=== PATIENT | male | born 1960 | race Caucasian/White ===

== ENCOUNTER 2023-08-13 10:37 | Outpatient (OUT) | payer OTHER, SELFPAY ==
[2023-08-14 10:12] LABS: PSA, Free 1.28 ng/mL; Prostate Specific Ag 4.8 ng/mL (0.0-4.0)
== END 2023-08-13 10:38 | disposition home or self-care (01) ==
LOC: LAB 10:41
PROVIDERS: PCP Family Medicine; Visit Provider Urology
DX: R97.20 Elevated prostate specific antigen [PSA] (principal)
CPT/HCPCS: 36415; 84153; 84154

== ENCOUNTER 2024-08-18 08:58 | Outpatient (OUT) | payer BC, SELFPAY ==
--- OUTSIDE RECORDS SUMMARY | 2024-08-18 09:21 | XMS_ITS | CCD ---
Author Organization [facility] Care Team Providers Care [place]ak Worker Name Role Phone FAVIOLA TELLO, DR REANNA Molina Admitting Unavailstephani MCKEON JR, DR REANNA Molina Attending Unavailstephani MCKEON JR, DR REANNA Molina Consulting Unavailstephani MCKEON JR, DR REANNA Molina Admitting Unavailstephani MCKEON JR, DR REANNA Molina Attending Unavailstephani MCKEON JR, DR REANNA Molina Consulting Unavailstephani HENRY WINWILIAM Consulting Unavailable ALLSOGucci, DR BARKER Consulting Unavailable FAVIOLA TELLO, DR REANNA Molina Admitting Unavailstephani MCKEON JR, DR REANNA Molina Attending Unavailstephani MCKEON JR, DR REANNA Molina Consulting UnavailCARLITOS Escoto Consulting Unavailable ALLSOP, DR BARKER Consulting Unavailable ALLSOP, DR BARKER Admitting Unavailable ALLSOP, DR BARKER Attending Unavailable ALLSOP, DR BARKER Consulting Unavailable ARNAUD ROBERTSON Admitting Unavailable ARNAUD ROBERTSON Attending Unavailable ARNAUD ROBERTSON Consulting Unavailable Tammy Marcano Primary Care Physician Tammy Marcano Primary Care Unavailable Maty Bah Attending Unavailable Maty Bah Admitting Unavailable MD Maty Bah Attending Provider MD Tammy Marcano Primary Care Provider Maty Bah. Attending Unavailable Maty Bah Attending Unavailable Tammy Marcano DO Primary Care Provider Unav ailable Tammy Marcano DO Unavailable ALISA Oliver Attending Unavailable TAMMY MARCANO Attending Unavailable MARLENE SHEIKH Attending Unavailable PEACE GLEASON Attending Unavailable Allergies Allergy Classification Reported Allergen(s) Allergy Type Date of Onset Reaction(s) Facility (1 source) Penicillin Drug Allergy [facility] Repository (3 sources) Penicillins; Translations: [penicillins] Drug allergy Unknown (qualifier value) [facility] Comment on above: reaction as child (1 source) Unable to Assess Drug allergy (disorder) 2 [facility] Repository (2 sources) Penicillins; Translations: [penicillins] Propensity to adverse reactions (disorder) 1 Unknown [facility] Repository Medications Current Medications Medication Drug Class(es) Dates Sig (Normalized) Sig (Original) amLODIPine 10 mg oral tablet (4 sources) Dihydropyridine Calcium Channel Agapito Start: 12-01-2023 take 1 tablet by mouth once daily amLODIPine (Norvasc) 10 MG tablet Indications: Primary hypertension (CMS/HCC) Take 1 tablet (10 mg) by mouth Daily 90 tablet 3 12/01/2023 Active Start: 08-02-2020 take 1 tablet by norberto th once daily amLODIPine 2.5 mg Tab 2.5 mg = 1 tab(s), Oral, Daily, # 30 tab(s), Refills(s) 0, Pharmacy: [facility], 182, cm, 07/31/20 10:03:00 EDT, Height/Length Dosing, 91, kg, 07/31/20 10:03:00 EDT, Weight Dosing Start Date: 08/02/20 Status: Ordered dorzolamide 20 mg/ml / timolol 5 mg/ml ophthalmic solution (1 source) Carbonic Anhydrase Inhibitor, beta-Adrenergic Agapito take 1 drop(s) into the eye(s) in the morning dorzolamide-timolol (Cosopt) 2-0.5 % ophthalmic solution Administer 1 drop into both eyes in the morning and 1 drop before bedtime. Active Emergen-C (3 sources) Start: take 1 tablet by mouth once daily Emergen-C one tab, Oral, Daily, Refill(s) 0 Start Date: 09/11/20 Status: Ordered latanoprost (4 sources) Prostaglandin Analog Start: take 1 drop(s) into the eye(s) once daily in the evening latanoprost ophthalmic 1 drop(s), Eye-Both, qPM, Refill(s) 0 Start Date: 07/31/20 Status: Ordered take 1 drop(s) into the eye(s) at bedtime latanoprost (Xalatan) 0.005 % ophthalmic solution Administer 1 drop into both eyes at bedtime. Active Problems Active Problems Problem Classification Problem Date Documented Date Episodic/Chronic Acute and unspecified renal failure (3 sources) Acute renal failure syndrome 08-23-2020 Episodic Biliary tract disease (3 sources) Adenomyomatosis of gallbladder 11-10-2020 Episodic Calculus of urinary tract (11 sources) Calculus of ureter; Translations: [Calculus in bladder] Onset: 10-31-2021 Episodic Chronic kidney disease (1 source) Dependence on renal dialysis; Translations: [DEPENDENCE ON RENAL DIALYSIS] Onset: 10-31-2021 Chronic Chronic obstructive pulmonary disease and bronchiectasis (4 sources) Chronic obstructive pulmonary disease, unspecified; Translations: [Chronic obstructive lung disease] Onset: 11-07-2021 08-16-2020 Chronic Essential hypertension (4 sources) Essential (primary) hypertension; Translations: [Hypertensive disorder] Onset: 11-07-2021 08-07-2020 Chronic Genitourinary symptoms and ill-defined conditions (10 sources) Gross hematuria; Translations: [Bladder dysfunction] Onset: 05-15-2022 09-01-2020 Episodic Glaucoma (3 sources) Glaucoma 08-16-2020 Chronic Hyperplasia of prostate (12 sources) Benign prostatic hyperplasia with lower urinary tract symptoms; Translations: [Benign prostatic hypertrophy with outflow obstruction] Onset: 11-07-2021 Chronic Inflammatory conditions of male genital organs (4 sources) Acute prostatitis; Translations: [Prostatitis] Onset: 05-15-2022 01-02-2021 Episodic Neoplasms of unspecified nature or uncertain behavior (1 source) Neoplastic disease; Translations: [Neoplasm of unspecified behavior of bone, soft tissue, and skin] 08-03-2024 Episodic Other and unspecified benign neoplasm (1 source) Melanocytic nevus of trunk; Translations: [Melanocytic nevi of trunk] 08-03-2024 Episodic Other diseases of kidney and ureters (3 sources) Cyst of kidney 10-04-2020 Episodic Other ear and sense organ disorders (3 sources) Hearing loss 08-07-2020 Chronic Other non-epithelial cancer of skin (1 source) History of malignant basal cell neoplasm of skin; Translations: [Personal history of other malignant neoplasm of skin] 08-03-2024 Episodic Other nutritional; endocrine; and metabolic disorders (3 sources) Body mass index 25-29 - overweight 11-14-2020 Episodic Other screening for suspected conditions (not mental disorders or infectious disease) (9 sources) Elevated prostate specific antigen [PSA]; Translations: [Raised prostate specific antigen] Onset: 11-07-2021 Episodic Other skin disorders (1 source) Seborrheic keratosis; Translations: [Other seborrheic keratosis] 08-03-2024 Episodic Other skin disorders (1 source) Actinic keratosis; Translations: [Actinic keratosis] 08-03-2024 Episodic Other skin disorders (1 source) Lentiginosis; Translations: [Other melanin hyperpigmentation] 08-03-2024 Episodic Substance-related disorders (3 sources) Smoker 10-04-2020 Chronic Comment on above: Added secondary to d ocumentation in Social History. Unclassified (3 sources) CONTACT W/AND (SUSP) EXPOS COVID-19; Translations: [CONTACT W/AND (SUSP) EXPOS COVID-19] Onset: 10-31-2021 Unclassified (1 source) Benign prostatic hyperplasia with lower urinary tract symptoms; Translations: [Benign prostatic hyperplasia with lower urinary tract symptoms] Onset: 08-22-2022 Past or Other Problems Problem Classification Problem Date Documented Date Episodic/Chronic Deficiency and other anemia (1 source) Anemia, unspecified; Translations: [ANEMIA UNSPECIFIED] Onset: 10-31-2021 Episodic Other aftercare (1 source) Other terminal operations supervisor (current) drug therapy; Translations: [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] Onset: 10-31-2021 Episodic Screening and history of mental health and substance abuse codes (1 source) Personal history of nicotine dependence; Translations: [PERSONAL HISTORY OF NICOTINE DEPEND] Onset: 11-07-2021 Episodic Unclassified (1 source) CONTACT W/AND (SUSP) EXPOS COVID-19; Translations: [CONTACT W/AND (SUSP) EXPOS COVID-19] Onset: 10-27-2021 Unclassified (3 sources) Catheterization of bladder by indwelling suprapubic catheter 09-01-2020 Results Test Name Value Interpretation Reference Range Facility Cryotherapy, skin lesionon 1 [facility] Lesion biopsyon 08-03-2024 Type of biopsy: tangential Informed consent: discussed and consent obtained Informed consent comment: The risks and benefits of the biopsy were discussed. Risks include but are not limited to bleeding, infection, scarring, pain, and nerve damage. An opportunity to ask questions prior to the procedure was permitted and all questions were answered. Patient was prepped and draped in usual sterile fashion: area cleansed with alcohol. Anesthesia: the lesion was anesthetized in a standard fashion Anesthetic: 1% lidocaine w/ epinephrine 1-100,000 buffered w/ 8.4% NaHCO3 Instrument used: DermaBlade Hemostasis achieved with: electrodesiccation Outcome: patient tolerated procedure well Outcome comment: The specimen was placed in a prelabeled formalin container to be sent for pathology Post-procedure details: sterile dressing applied and wound care instructions given Post-procedure details comment: Emphasized need to contact clinic for any signs of infection, uncontrollable bleeding, or complications. Dressing type: bandage Additional details: Photo taken Amount of lidocaine used: 0.4 cc [facility] Reminderson 07-21-2024 Reminders Reminders From: Palak Watkins To: MARY Bah; Sent: 09/03/2023 13:40:12 EST Show up: 07/04/2024 14:40:00 EDT Subject: PSA F&T Due Date/Time: 09/03/2024 13:40:00 EST Pt is to get PSA F&T done prior to appt. Reminders are not required for PSA. Normal [facility] Lab Reportson 09-04-2023 Lab Reports [id number] 0TIFF Normal [facility] Screenson 09-04-2023 Screens [id number]#[id number] 0TIFF Normal [facility] Screens [id number] 0TIFF Normal [facility] Ambulatory Visit Summaryon 1 11-03-2022 Ambulatory Visit Summary SHENG TEAGUE :1960 Visit Date:09/03/2023 Ambulatory Visit Instructions Your Diagnosis Elevated PSA BPH without urinary obstruction Tests Performed Urnls Dip Stick Auto w/o Microscopy POC 61007 Your Care Team Attending Physician - Maty Bah MD Primary Care Physician - Tammy Marcano DO This Is Your Medications List Contact prescribing physician if questions or concerns amlodipine (amLODIPine 2.5 mg Tab) dorzolamide-timolol ophthalmic (dorzolamide-timolol Opth 2%-0.5% Venita) latanoprost ophthalmic multivitamin with minerals (Emergen-C) Procedures Performed Cystoscopy (10/31/2021), TURP - Transurethral resection of prostate (10/18/2020), Cystoscopy (09/11/2020), Cystoscopy (08/07/2020), Histology tonsillectomy. Discharge Vitals Blood Pressure 124/82 Height 177 cm Height 70 in Weight 109 kg Weight 239.8 lb BMI 34.79 What to do next Scheduled Follow-Up Appointments Friday 10:45 AM EST With: Maty Bah MD Where: [facility] Patient Educationon 09-03-20 Patient Education Urology Benign Prostatic Hyperplasia Benign prostatic hyperplasia (BPH) is an enlarged prostate gland that is caused by the normal aging process. The prostate may get bigger as a man gets older. The condition is not caused by cancer. The prostate is a walnut-sized gland that is involved in the production of semen. It is located in front of the rectum and below the bladder. The bladder stores urine. The urethra carries stored urine out of the body. An enlarged prostate can press on the urethra. This can make it harder to pass urine. The buildup of urine in the bladder can cause infection. Back pressure and infection may progress to bladder damage and kidney (renal) failure. What are the causes? This condition is part of the normal aging process. However, not all men develop problems from this condition. If the prostate enlarges away from the urethra, urine flow will not be blocked. If it enlarges toward the urethra and compresses it, there will be problems passing urine. What increases the risk? This condition is more likely to develop in men older than 50 years. What are the signs or symptoms? Symptoms of this condition include: ? Getting up often during the night to urinate. ? Needing to urinate frequently during the day. ? Difficulty starting urine flow. ? Decrease in size and strength of your urine stream. ? Leaking (dribbling) after urinating. ? Inability to pass urine. This needs immediate treatment. ? Inability to completely empty your bladder. ? Pain when you pass urine. This is more common if there is also an infection. ? Urinary tract infection (UTI). How is this diagnosed? This condition is diagnosed based on your medical history, a physical exam, and your symptoms. Tests will also be done, such as: ? A post-void bladder scan. This measures any amount of urine that may remain in your bladder after you finish urinating. ? A digital rectal exam. In a rectal exam, your health care provider checks your prostate by putting a lubricated, gloved finger into your rectum to feel the back of your prostate gland. This exam detects the size of your gland and any abnormal lumps or growths. ? An exam of your urine (urinalysis). ? A prostate specific antigen (PSA) screening. This is a blood test used to screen for prostate cancer. ? An ultrasound. This test uses sound waves to electronically produce a picture of your prostate gland. Your health care provider may refer you to a specialist in kidney and prostate diseases (urologist). How is this treated? Once symptoms begin, your health care provider will monitor your condition (active surveillance or watchful waiting). Treatment for this condition will depend on the severity of your condition. Treatment may include: ? Observation and yearly exams. This may be the only treatment needed if your condition and symptoms are mild. ? Medicines to relieve your symptoms, including: ? Medicines to shrink the prostate. ? Medicines to relax the muscle of the prostate. ? Surgery in severe cases. Surgery may include: ? Prostatectomy. In this procedure, the prostate tissue is removed completely through an open incision or with a laparoscope or robotics. ? Transurethral resection of the prostate (TURP). In this procedure, a tool is inserted through the opening at the tip of the penis (urethra). It is used to cut away tissue of the inner core of the prostate. The pieces are removed through the same opening of the penis. This removes the blockage. ? Transurethral incision (TUIP). In this procedure, small cuts are made in the prostate. This lessens the prostate's pressure on the urethra. ? Transurethral microwave thermotherapy (TUMT). This procedure uses microwaves to create heat. The heat destroys and removes a small amount of prostate tissue. ? Transurethral needle ablation (TUNA). This procedure uses radio frequencies to destroy and remove a small amount of prostate tissue. ? Interstitial laser coagulation (ILC). This procedure uses a laser to destroy and remove a small amount of prostate tissue. ? Transurethral electrovaporization (TUVP). This procedure uses electrodes to destroy and remove a small amount of prostate tissue. ? Prostatic urethral lift. This procedure inserts an implant to push the lobes of the prostate away from the urethra. Follow these instructions at home: ? Take biyu-ilx-utuvfzh and prescription medicines only as told by your health care provider. ? Monitor your symptoms for any changes. Contact your health care provider with any changes. ? Avoid drinking large amounts of liquid before going to bed or out in public. ? Avoid or reduce how much caffeine or alcohol you drink. ? Give yourself time when you urinate. ? Keep all follow-up visits. This is important. Contact a health care provider if: ? You have unexplained back pain. ? Your symptoms do not get better with treatment. ? You develop side effects from the medicine (more content not included)... Normal [facility] Urology Office/Clinic Noteon 09-03-2023 Urology Office/Clinic Note Chief Complaint 1 year F/U with PSA Free & Totsl HPI Staff 63 yo male here for 1 yr f/u with PSA. Previous Dx: elevated PSA, BPH wo obstruction. S/p TRUS/bx 09/11/20 and TURP 10/18/[address] Bautista. Prostate MRI 08/22/22. IPSS 5 SHIM23 PSA 08/16/20 - 15.9 05/13/22 - 8.02 08/20/23 - 4.8 & 26.7% Dysuria: denies Incomplete bladder emptying: denies Hematuria: denies visible blood Frequency: every 2-3 hours Urgency: denies Nocturia: once nightly Stream: denies hesitation, sometimes weak stream Leaking: denies Post void dripping: a little bit Wearing pads/ Depends: denies Urge incontinence: denies Stress incontinence: denies Incontinence without Sensory Awareness: denies Abdominal pain: denies Flank pain: denies3 Sexual complaints: denies History of Present Illness Tests reviewed: reviewed UA and PSA F&T. I have reviewed the previous health record information and history for this patient from . I have reviewed and verified the staff HPI to be accurate for this encounter. There have been no associated fever, chills, flank pain, or blood in the urine. Denies any urinary infections since last encounter. Review of Systems PHQ Score Initial Depression Screen Score: 0 SCORE ROS - Provider Constitutional: denies weight loss, denies hot flashes. Eyes: denies eye problems. Gastrointestinal: denies nausea, denies vomiting. Cardiovascular: denies chest pain or angina. Integumentary: no dryness Musculoskeletal: denies musculoskeletal symptoms. ENMT: denies otolaryngeal symptoms. Respiratory: no shortness of breath. Heme/Lymph: denies easy bleeding tendency, denies easy bruising tendency. Psychiatric: no confusion, no anxiety. Genitourinary: See HPI. Physical Exam Vitals & Measurements BP: 124/82 HT: 70 in HT: 177 cm WT: 109 kg WT: 239.8 lb BMI: 34.79 General Appearance: alert, no distress, well nourished, well developed male. Assessment/Plan 63 yo male pt of Dr Bautista and Dr Mckeon here for follow up for history of elevated PSA 1. Elevated PSA (R97.20: Elevated prostate specific antigen [PSA]) PSA 08/16/20 - 15.9 05/13/22 - 8.02 08/20/23 - 4.8 & 26.7% 09/2020 - TRUS BX negative 06/05/22 [facility] - 59% prostate cancer upon biopsy, and 31% Wally score 7 or higher 08/22/2022 MRI prostate - negative, prostate vol 71mL. PSAD 0.113 He is aware of the limitations with MRI. PCPT risk calculator - 14% high grade cancer, 13% low grade, 73% no cancer. SWOG calculator taking into account bx, MRI and other history - 5% risk of cancer Discussed PSA levels with pt, decreased from previous, percent free is high, which is favorable. Pt states that he has not changed anything with his diet or meds. Counseled pt on what could cause the PSA to elevate and what to not do prior to getting his blood drawn. Will continue to monitor. Follow up in 1 yr w/PSA F&T. All questions/concerns were discussed. Pt to call the office if he encounters any issues prior. Pt acknowledges understanding. -Will order PSA F&T. 2. BPH without urinary obstruction (N40.0: Benign prostatic hyperplasia without lower urinary tract symptoms) TURP 10/18/[address] Bautista. Complicated by persistent hematuria, SPT, transfer to [facility] for further mgmt s/p clot evac, fulguration S/P Cysto/bladder stone removal on 11/20/21 by DLS 2 cm, mild trabeculation, severe bilobar hypertrophy No longer on Flomax therapy. IPSS 5(4) Pr denies any urinary sxs. -Pt would like to cont monitoring for urinary LUTS. If occurs, would recommend restarting Flomax therapy +/- finasteride and workup for outlet procedure. I spent 20 minutes today with the patient: reviewing tests in preparation to see and discuss them with the patient, documenting clinical information in the electronic health records, and care coordination. Time was spent performing a medical exam and evaluation, counseling and educating the patient/family, and ordering tests in caring for the patient. Follow-up With When Contact Information Olvin HARPER, MARIA ELENA Camacho, URO In 1 year Additional Instructions: w/PSA F&T Patient Education Benign Prostatic Hyperplasia Palak Espino, personally scribed for Dr. Bah on 09/03/2023 11:43:31. . Documentation recorded by the scribePalak, accurately reflects the services(s) I performed and decisions made by me. Authenticated by Dr. Bah on 09/03/2023 18:50:30. Problem List/Past Medical History Ongoing Abnormal abdominal CT scan Acute renal failure Adenomyomatosis of gallbladder Bilateral renal cysts BMI 29.0-29.9,adult BPH with elevated PSA BPH without urinary obstruction Chronic obstructive pulmonary disease Elevated PSA Glaucoma Gross hematuria High blood pressure [place] (hard of hearing) Kidney stones Prostatitis Smoker Urinary retention Historical Bladder dysfunction BPH - benign prostatic hyperp (more content not included)... Normal [facility] Comment on above: Result Comment: Elec tronically Signed By: Olvin HARPER, Maty Can\.br\Date and Time Signed: 09/03/23 18:50 EST\.br\Electronically Co-Signed By: Palak Watkins\.br\Date and Time Co-Signed: 09/03/23 11:43 EST MR prostate wo/w conon 08-25 MR prostate wo/w con [facility] [place] [address] MRI Report Signed Patient: Sheng Teague MR#: [id number] : 1960 Acct:[id number] Age/Sex: 62 / M ADM Date: 08/22/22 Loc: Room: Type: [facility] Attending Dr: Maty Bah MD Copies to: Maty Bah MD Ordering Provider: Maty Bah MD Date of Service: 08/22/22 MR/MR prostate wo/w con: N40.1,R97.20 EXAMINATION: MR prostate wo/w con HISTORY: Elevated PSA. History of TURP. COMPARISON: NONE TECHNIQUE: Multiparametric imaging of the prostate gland was performed with IV contrast. FINDINGS: Prostate Dimensions: 5.9 x 5.0 x 4.6 cm Prostate Volume: 71 mL Peripheral Zone: Heterogenous inT2 signal suggestive of prior prostatitis. No suspicious T2 or ADC map abnormality is identified to suggest prostate malignancy. Central/Transitional Zone: BPH/TURP changes. Seminal Vesicles: Unremarkable Neurovascular bundles: Unremarkable. Lymphadenopathy: No evidence of lymphadenopathy. Bladder: No focal lesion. Bowel: The visualized bowel is without acute abnormality. Peritoneal Cavity: No free fluid. Bones: No suspicious bony lesion. MR/MR prostate wo/w con IMPRESSION: No MRI evidence of prostate malignancy. Impression dictated by: Ed Brand Jr., D.OValeri08/25/2022 8:49 PM Dictation Location: [place] [address] Transcribed By: [facility] 08/25/222048 Dictated By: Ed Brand Jr, DO 08/25/222043 Signed By: 08/25/222048 [facility] Creatinine (Bld) [Mass/Vol]O rdered By: Maty Bah on 08-22-2022 Creatinine [Mass/Vol] 1.1 mg/dL 0.6-1.3 [facility] Comment on above: ER/ESD physician is notified/shown all ISTAT results.Critical values may be confirmed by laboratory testing ifdeemed necessary by ER attending doctor. ISTAT XRay CREon 08-22-2022 Creatinine [Mass/Vol] 1.1 mg/dL Normal 0.6-1.3 [facility] Comment on above: Result Comment: ER/E SD physician is notified/shown all ISTAT results. Critical values may be confirmed by laboratory testing if deemed necessary by ER attending doctor. Performed By: #### I SCRE #### [facility] [address] [place] [address] Point of Care testing , ISTAT GFR ( > 60 Normal [facility] Comment on above: Result Comment: GFR estimated reference range: According to KDOQI guidelines, <60 ml/min/1.73m2 is sufficient to diagnose a patient with chronic kidney disease. PERFORMED BY: [place] [address] PATHOLOGIST EXECUTIVE VICE PRESIDENT BUSINESS DEVELOPMENT BARRY RAMOS M.D. Performed By: #### I SCRE #### [address] Point of Care testing , ISTAT GFR (Non- Am > 60 Normal [facility] Comment on above: Performed By: #### I SCRE #### [facility] [address] [place] [address] Point of Care testing , No Panel InformationOrdered By: Maty Bah on 08-22-2022 POC Estimated GFR > 60 [facility] Comment on above: GFR estimated refere nce range: According to KDOQI guidelines, <60 ml/min/1.73m2 is sufficient to diagnose a patient with chronic kidney disease. POC Estimated GFR Non- Amer > 60 [facility] CALCULI, URINARYon 2 2,[address] [facility] Comment on above: Performed By: #### C ALCULI #### [facility] [address] [address] [address] Jenni Bartlett Ammonium Acid Urate Normal [facility] Comment on above: Performed By: #### C ALCULI #### [facility] [address] [address] [address] Jenni Bartlett Bilirubin Ql (U) Normal [facility] Comment on above: Performed By: #### C ALCULI #### [facility] [address] [address] [address] Jenni Bartlett Ca Oxalate Dihydrate [facility] Comment on above: Performed By: #### C ALCULI #### [facility] [address] [address] [address] Jenni Bartlett CaHPO4 (Brushite) [facility] Comment on above: Performed By: #### C ALCULI #### [facility] [address] [address] [address] Jenni Bartlett Calcium Bilirubinate [facility] Comment on above: Performed By: #### C ALCULI #### [facility] [address] [address] [address] Jenni Bartlett Calcium Carbonate [facility] Comment on above: Performed By: #### C ALCULI #### [facility] [address] [address] [address] Jenni Bartlett Calcium Oxalate Monohydrate 10 % [facility] Comment on above: Performed By: #### C ALCULI #### [facility] [address] [address] [address] Jenni Bartlett Calcium Palmitate [facility] Comment on above: Performed By: #### C ALCULI #### [facility] [address] [address] [address] Jenni Bartlett Calcium Phosphate [facility] Comment on above: Performed By: #### C ALCULI #### [facility] [address] [address] [address] Jenni Bartlett Calcium Stearate [facility] Comment on above: Performed By: #### C ALCULI #### [facility] [address] [address] [address] Jenni Bartlett Carbonate Apatite Normal [facility] Comment on above: Performed By: #### C ALCULI #### [facility] [address] [address] [address] Jenni Bartlett Cellular Material [facility] Comment on above: Performed By: #### C ALCULI #### [facility] [address] [address] [address] Jenni Bartlett Cholesterol [facility] Comment on above: Performed By: #### C ALCULI #### [facility] [address] [address] [address] Jenni Bartlett Color (U) Nath [facility] Comment on above: Performed By: #### C ALCULI #### [facility] [address] [place] [address] Dr. Jenni Bartlett Comment [facility] Comment on above: Performed By: #### C ALCULI #### [facility] [address] [address] [address] Jenni Bartlett Comment: Comment [facility] Comment on above: Result Comment: Elizabeth clayton questions regarding Calculi Analysis contact [facility] at: [phone]. Performed By: #### C ALCULI #### [facility] [address] [place] [address] Dr. Jenni Bartlett Composition Comment [facility] Comment on above: Result Comment: Perc entage (Represents the % composition) Performed By: #### C ALCULI #### [facility] [address] [place] [address] Dr. Jenni Bartlett Cystine [facility] Comment on above: Performed By: #### C ALCULI #### [facility] [address] [place] [address] Dr. Jenni Bartlett Disclaimer: Comment [facility] Comment on above: Result Comment: This test was developed and its performance characteristics determined by [facility]. It has not been cleared or approved by the Food and Drug Administration. Performed By: #### C ALCULI #### [facility] [address] [address] [address] Jenni Bartlett Dried Blood [facility] Comment on above: Performed By: #### C ALCULI #### [facility] [address] [address] [address] Jenni Bartlett Drug or Metabolite Normal [facility] Comment on above: Performed By: #### C ALCULI #### [facility] [address] [address] [address] Jenni Bartlett Hydroxyapatite Normal [facility] Comment on above: Performed By: #### C ALCULI #### [facility] [address] [address] [address] Jenni Bartlett Mg NH4 PO4 (Struvite) [facility] Comment on above: Performed By: #### C ALCULI #### [facility] [address] [place] [address] Dr. Jenni Bartlett MgHPO4 (Newberyite) Normal [facility] Comment on above: Performed By: #### C ALCULI #### [facility] [address] [address] [address] Jenni Bartlett Other component(s) Normal [facility] Comment on above: Performed By: #### C ALCULI #### [facility] [address] [place] [address] Dr. Jenni Bartlett PDF . Normal [facility] Comment on above: Performed By: #### C ALCULI #### [facility] [address] [address] [address] Jenni Bartlett Photo Comment Normal [facility] Comment on above: Result Comment: Phot ograph will follow under a separate cover Performed By: #### C ALCULI #### [facility] [address] [place] [address] Dr. Jenni Bartlett Please note: Comment [facility] Comment on above: Result Comment: Calc gentry report will follow via computer, mail or employment case manager delivery. Performed By: #### C ALCULI #### [facility] [address] [place] [address] Dr. Jenni Bartlett Size 4x4 [facility] Comment on above: Result Comment: Mult iple pieces received. Dimensions of the largest piece reported. Performed By: #### C ALCULI #### [facility] [address] [place] [address] Dr. Jenni Bartlett Sodium Acid Urate Normal [facility] Comment on above: Performed By: #### C ALCULI #### [facility] [address] [address] [address] Jenni Bartlett Source Comment [facility] Comment on above: Result Comment: Urin kalpesh Bladder Performed By: #### C ALCULI #### [facility] [address] [place] [address] Dr. Jenni Bartlett Triamterene [facility] Comment on above: Performed By: #### C ALCULI #### [facility] [address] [place] [address] Dr. Jenni Bartlett Uric Acid 90 % [facility] Comment on above: Performed By: #### C ALCULI #### [facility] [address] [place] [address] Dr. Jenni Bartlett Uric Acid Dihydrate Normal [facility] Comment on above: Performed By: #### C ALCULI #### [facility] [address] [address] [address] Jenni Bartlett Weight [address] [facility] Comment on above: Performed By: #### C ALCULI #### [facility] [address] [place] [address] Dr. Jenni Bartlett Xanthine [facility] Comment on above: Performed By: #### C ALCULI #### [facility] [address] [place] [address] Dr. Jenni Bartlett CBC AUTO DIFFon 10-29-2021 BASO # 0.1 103/ul Normal 0.0-0.1 [facility] Comment on above: Performed By: #### C BC #### [facility] [address] [place] [address] Dr. Jenni Bartlett Basophils/100 WBC (Bld) 0.6 % Normal 0.2-2.0 [facility] Comment on above: Performed By: #### C BC #### [facility] [address] [place] [address] Dr. Jenni Bartlett EO # 0.2 103/ul Normal 0.0-0.7 [facility] Comment on above: Performed By: #### C BC #### [facility] [address] [place] [address] Dr. Jenni Bartlett Eosinophils/100 WBC (Bld) 2.0 % Normal 0.9-7.0 [facility] Comment on above: Performed By: #### C BC #### [facility] [address] [place] [address] Dr. Jenni Bartlett Erythrocyte distribution width (RBC) [Ratio] 12.7 % Normal 11.0-15.0 [facility] Comment on above: Performed By: #### C BC #### [facility] [address] [place] [address] Dr. Jenni Bartlett Hematocrit (Bld) [Volume fraction] 49.3 % Normal 42.0-54.0 [facility] Comment on above: Performed By: #### C BC #### [facility] [address] [place] [address] Dr. Jenni Bartlett Hemoglobin (Bld) [Mass/Vol] 16.8 g/dL Normal 14.0-18.0 [facility] Comment on above: Performed By: #### C BC #### [facility] [address] [place] [address] Dr. Jenni Bartlett IG # 0.03 10e3/ul Normal 0.00-0.03 [facility] Comment on above: Performed By: #### C BC #### [facility] [address] [place] [address] Dr. Jenni Bartlett IG % 0.4 % Normal 0.0-0.5 [facility] Comment on above: Performed By: #### C BC #### [facility] [address] [place] [address] Dr. Jenni Bartlett LYMPH # 1.9 103/ul Normal 1.2-3.8 [facility] Comment on above: Performed By: #### C BC #### [facility] [address] [place] [address] Dr. Jenni Bartlett Lymphocytes/100 WBC (Bld) 22.2 % Normal 20.5-60.0 [facility] Comment on above: Performed By: #### C BC #### [facility] [address] [place] [address] Dr. Jenni Bartlett MANUAL DIFF REQ NO Normal [facility] Comment on above: Performed By: #### C BC #### [facility] [address] [place] [address] Dr. Jenni Bartlett MCH (RBC) [Entitic mass] 33.1 pg Normal 25.9-34.0 [facility] Comment on above: Performed By: #### C BC #### [facility] [address] [place] [address] Dr. Jenni Bartlett MCHC (RBC) [Mass/Vol] 34.1 g/dL Normal 29.9-35.2 [facility] Comment on above: Performed By: #### C BC #### [facility] [address] [place] [address] Dr. Jenni Bartlett MCV (RBC) [Entitic vol] 97.2 fL Critically high 80.0-94.0 [facility] Comment on above: Performed By: #### C BC #### [facility] [address] [place] [address] Dr. Jenni Bartlett MONO # 0.7 103/ul Normal 0.3-0.8 [facility] Comment on above: Performed By: #### C BC #### [facility] [address] [place] [address] Dr. Jenni Bartlett Monocytes/100 WBC (Bld) 8.8 % Normal 1.7-12.0 [facility] Comment on above: Performed By: #### C BC #### [facility] [address] [place] [address] Dr. Jenni Bartlett NEUT # 5.5 103/ul Normal 1.4-6.5 [facility] Comment on above: Performed By: #### C BC #### [facility] [address] [place] [address] Dr. Jenni Bartlett Neutrophils/100 WBC (Bld) 66.0 % Normal 43.0-75.0 [facility] Comment on above: Performed By: #### C BC #### [facility] [address] [place] [address] Dr. Jenni Bartlett Platelet mean volume (Bld) [Entitic vol] 10.6 fL Normal 9.5-13.5 [facility] Comment on above: Performed By: #### C BC #### [facility] [address] [place] [address] Dr. Jenni Bartlett PLT 218 103/ul Normal 150-450 [facility] Comment on above: Performed By: #### C BC #### [facility] [address] [place] [address] Dr. Jenni Bartlett RBC 5.07 106/ul Normal 4.70-6.10 [facility] Comment on above: Performed By: #### C BC #### [facility] [address] [place] [address] Dr. Jenni Bartlett WBC 8.3 103/ul Normal 4.0-11.0 [facility] Comment on above: Performed By: #### C BC #### [facility] [address] [place] [address] Dr. Jenni Bartlett PROF CHEM 8 (BAS METB)on Anion gap [Moles/Vol] 12.9 mmol/L Normal [facility] Comment on above: Performed By: #### B MP #### [facility] [address] [place] [address] Dr. Jenni Bartlett Calcium [Mass/Vol] 9.6 mg/dL Normal 8.4-10.2 [facility] Comment on above: Performed By: #### B MP #### [facility] [address] [place] [address] Dr. Jenni Bartlett Chloride [Moles/Vol] 104 mmol/L Normal 98-107 [facility] Comment on above: Performed By: #### B MP #### [facility] [address] [address] [address] Jenni Bartlett CO2 [Moles/Vol] 27.2 mmol/L Normal 22.0-30.0 [facility] Comment on above: Performed By: #### B MP #### [facility] [address] [address] [address] Jenni Bartlett Creatinine [Mass/Vol] 0.94 mg/dL Normal 0.66-1.25 [facility] Comment on above: Performed By: #### B MP #### [facility] [address] [address] [address] Jenni Bartlett EGFR-AF ALGERIAN >60 Normal >=60 [facility] Comment on above: Performed By: #### B MP #### [facility] [address] [place] [address] Dr. Jenni Bartlett EGFR-NON AF ALGERIAN >60 Normal >=60 [facility] Comment on above: Performed By: #### B MP #### [facility] [address] [address] [address] Jenni Bartlett Glucose [Mass/Vol] 92 mg/dL Normal 74-106 [facility] Comment on above: Performed By: #### B MP #### [facility] [address] [address] [address] Jenni Bartlett Potassium [Moles/Vol] 4.1 mmol/L Normal 3.4-5.0 [facility] Comment on above: Performed By: #### B MP #### [facility] [address] [address] [address] Jenni Bartlett Sodium [Moles/Vol] 140 mmol/L Normal 137-145 [facility] Comment on above: Performed By: #### B MP #### [facility] [address] [address] [address] Jenni Bartlett Urea nitrogen [Mass/Vol] 23.0 mg/dL Critically high 9.0-20.0 [facility] Comment on above: Performed By: #### B MP #### [facility] [address] [address] [address] Jenni Bartlett Urea nitrogen/Creatinine [Mass ratio] 24.5 mg/mg Normal [facility] Comment on above: Performed By: #### B MP #### [facility] [address] [place] [address] Dr. Jenni Bartlett PROTIMEon 10-29-2021 INR Coag (PPP) [Relative time] 0.98 {INR} Normal [facility] Comment on above: Performed By: #### P T, PTT #### [facility] [address] [place] [address] Dr. Jenni Bartlett INR GUIDELINES SEE BELOW Normal [facility] Comment on above: Result Comment: DAIANA RED INR: 2.0 - 3.0 CONDITIONS NOT LISTED BELOW 2.5 - 3.5 FOR PROSTHETIC HEART VALVE REPLACEMENT 2.5 - 3.5 RECURRENT THROMBOSIS Performed By: #### P T, PTT #### [facility] [address] [place] [address] Dr. Jenni Bartlett PT Coag (PPP) [Time] 10.6 s Normal 9.0-11.6 [facility] Comment on above: Performed By: #### P T, PTT #### [facility] [address] [place] [address] Dr. Jenni Bartlett PTTon 10-29-2021 aPTT Coag (Bld) [Time] 28.5 s Normal 22.3-36.[address] [facility] Comment on above: Performed By: #### P T, PTT #### [facility] [address] [place] [address] Dr. Jenni Bartlett Covid-19 PCR (CVDTB)on 10-07 SARS-CoV-2 (COVID-19) RNA ODILIA+probe Ql (Unsp spec) Not detected Normal NOT DETECTED [facility] Comment on above: Result Comment: This test is not yet approved or cleared by the [place] FDA. When there are no FDA-approved or cleared tests available, and other criteria are met, FDA can make tests available under an emergency access mechanism called an Emergency Use Authorization (EUA). The EUA for this test is supported by the [place] of Health and Human Service's (HHS's) declaration that circumstances exist to justify the emergency use of in vitro diagnostics for the detection and/or diagnosis of the virus that causes COVID-19. This EUA will remain in effect (meaning this test can be used) for the duration of the COVID-19 declaration justifying emergency of IVDs, unless it is terminated or revoked by FDA (after which the test may no longer be used). When diagnostic testing is negative, the possibility of a false negative should be considered in the context of a patient's recent exposures and the presence of clinical signs and symptoms consistent with SARS-CoV-2. Performed By: #### C VDTB #### [facility] [address] [place] [address] Dr. Jenni Bartlett Covid-19 PCR ([facility])on 10-06 SARS-CoV-2 (COVID-19) RNA ODILIA+probe Ql (Unsp spec) Not detected Normal NOT DETECTED [facility] Comment on above: Result Comment: This test is not yet approved or cleared by the [place] FDA. When there are no FDA-approved or cleared tests available, and other criteria are met, FDA can make tests available under an emergency access mechanism called an Emergency Use Authorization (EUA). The EUA for this test is supported by the [place] of Health and Human Service's (HHS's) declaration that circumstances exist to justify the emergency use of in vitro diagnostics for the detection and/or diagnosis of the virus that causes COVID-19. This EUA will remain in effect (meaning this test can be used) for the duration of the COVID-19 declaration justifying emergency of IVDs, unless it is terminated or revoked by FDA (after which the test may no longer be used). When diagnostic testing is negative, the possibility of a false negative should be considered in the context of a patient's recent exposures and the presence of clinical signs and symptoms consistent with SARS-CoV-2. Performed By: #### C VDTB #### [facility] [address] [place] [address] [id number] [address] Jenni Bartlett SURGICAL PATH REPORTon 10-20 SURGICAL PATH REPORT [facility] Department of Pathology [address] [place] [id number] Name: SHENG TEAGUE : 1960 Financial [id number] Number: Gender: Male Location: [facility] Admit 60 years Attending MICAH BAUTISTA Age: Provider: Ordering MICAH BAUTISTA Provider: Consulting: Surgical Pathology Report ACCESSION: COLLECTED DATE/TIME: RECEIVED DATE/TIME: PATHOLOGIST: [id number] 10/18/2020 16:30 EST 10/19/2020 12:14 EST REBECA FLETCHER MD Final Diagnosis Report for THE [place], [place] PROSTATE TISSUE, TURP: - BENIGN PROSTATIC TISSUE WITH STROMAL AND GLANDULAR HYPERPLASIA. - ACUTE AND CHRONIC PROSTATITIS. - NEGATIVE FOR MALIGNANCY. REBECA FLETCHER PATHOLOGIST (Electronic Signature) Date Verified 10/20/2020 CL Clinical Data PRE-OP DIAGNOSIS: Not specified POST-OP DIAGNOSIS: Enlarged prostate PROCEDURES: Cysto, UD, cystogram, TURP SPECIMEN: Prostate tissue / Ambulatory Surgery Gross Description Labeled prostate tissue. Received in formalin are multiple hemicylindrical segments of nath pink firm but pliable tissue. The segments have an aggregate weight of 20 grams and measure in aggregate 8.4 x 7.0 x 2.1 cm. Chef Kitchen Manager sections are submitted in 15 cassettes. MP/hector 10/19/2000 Tissue pathology report for: [facility], [address] [place] [address]; Print Date/ 10/20/2020 13:09 EST Number: Time: [facility] Department of Pathology [address] [place] [address] Name: SHENG TEAGUE : 1960 Financial [id number] Number: Gender: Male Location: [facility] Admit 60 years Attending MICAH BAUTISTA Age: Provider: Ordering MICAH BAUTISTA Provider: Consulting: Surgical Pathology Report ACCESSION: COLLECTED DATE/TIME: RECEIVED DATE/TIME: PATHOLOGIST: [id number] 10/18/2020 16:30 EST 10/19/2020 12:14 EST CHANCE HARPER, REBECA PAGAN Gross Description PATHOLOGY SERVICES [facility], [facility] (CLIA #[id number]) in cooperation with [facility] at [address] [place] [address] (CLIA #[id number]) Codes CPT CODE: 85440 Print Date/ 10/20/2020 13:09 EST Number: Time: Normal [facility] Comment on above: Performed By: #### [id number] #### [facility] [address] [place] [address] Horticulture Superintendent: Wilton Holcomb MD Vital Signs Date Time Vital Sign Value Performing Clinician Sana hillman 07-17-2022 10:10-0400 Blood Pressure Location Maty Bah [facility] 07-17-2022 10:10-0400 Diastolic blood pressure 70 mm[Hg] Maty Bah [facility] 07-17-2022 10:10-0400 Heart rate 64 /min Maty Bah [facility] 07-17-2022 10:10-0400 Systolic blood pressure 126 mm[Hg] Maty Bah [facility] Encounters Encounter Date Encounter Type Care Provider Facility Start: 09-15-2024 ambulatory Maty Bah Facility:[facility] Start: 08-03-2024 End: 08-03-2024 Office outpatient visit 15 minutes Peace Gleason MD Work Phone: [facility] Comment on above: Melanocytic nevus of trunk (Primary Dx); Seborrheic keratosis; Actinic keratosis; History of basal cell carcinoma; Lentigines; Neoplasm of unspecified behavior of bone, soft tissue, and skin Start: 08-03-2024 End: 08-03-2024 ambulatory PEACE GLEASON Not Available Start: 05-14-2024 End: 05-14-2024 ambulatory MARLENE SHEIKH Not Available Start: 12-01-2023 End: 12-01-2023 ambulatory TAMMY MARCANO Not Available Start: 10-16-2023 End: 10-16-2023 ambulatory ALISA ALFONSO Not Available Start: 09-30-2023 End: 09-30-2023 ambulatory ALISA ALFONSO Not Available Start: 09-03-2023 End: 09-03-2023 ambulatory Maty Bah Facility:[facility] Start: 08-28-2022 End: 08-28-2022 Patient encounter procedure Mtay Bah [facility] Start: 08-22-2022 End: 08-22-2022 ambulatory Tammy Marcano Facility:[facility] Start: 08-22-2022 End: 08-22-2022 ambulatory MD Tammy Marcano Work Phone: [facility] Work Phone: Start: 08-22-2022 End: 08-22-2022 Patient encounter procedure MD Tammy Marcano Work Phone: [facility] Start: 08-06-2022 End: 08-06-2022 Patient encounter procedure Maty Bah [facility] Start: 07-17-2022 End: 07-17-2022 Patient encounter procedure Maty Bah [facility] Start: 05-13-2022 End: 05-14-[address] REANNA MCKEON JR Facility:[facility] Start: 10-31-2021 Encounter for preprocedural cardiovascular examination DR REANNA MCKEON JR [facility] Start: 10-31-2021 Encounter for preprocedural laboratory examination DR REANNA MCKEON JR [facility] Start: 10-31-2021 End: 10-31-[address] REANNA MCKEON JR Facility:[facility] Start: 10-29-2021 End: 10-30-[address] REANNA MCKEON JR Facility:[facility] Start: 10-29-2021 End: 10-30-2021 Encounter for preprocedural cardiovascular examination DR REANNA MCKEON JR Facility:[facility] Start: 10-27-2021 End: 10-28-2021 ambulatory ARNAUD ROBERTSON Facility:[facility] Start: 10-16-2021 End: 10-16-[address] TAMMY MARCANO Facility:[facility] Procedures Date Procedure Procedure Detail Performing Clinician Start: 08-03-2024 CRYOTHERAPY SKIN LESION Peace Gleason MD Work Phone: Start: 08-03-2024 SKIN / NAIL BIOPSY Pritesh Gleason MD Work Phone: Start: 05-13-[address] REANNA MCKEON JR Comment on above: Performed By: #### P SAD #### [facility] [address] [place] [address] Dr. Jenni Bartlett Start: 10-31-2021 Cystoscopy Maty Bah Start: 10-18-2020 Transurethral prostatectomy Maty Bah Start: 09-11-2020 Cystoscopy Maty Bah Start: 08-07-2020 Cystoscopy Maty Bah Histology tonsillectomy Miriam Bah Comment on above: as child Plan of Treatment Date Care Activity Detail Author Start: 08-11-2025 End: 08-11-2025 Patient encounter procedure 08/11/2025 11:35 AM EST Office Visit [facility] [address] [place] [id number] Peace Gleason MD [address] [place] [address] [facility] Start: 12-01-2024 Pneumococcal Vaccine: 65+ Years (1 of 2 - PCV) Pneumococcal Vaccine: 65+ Years (1 of 2 - PCV) [facility] Comment on above: Postponed from 1964 (Patient Refus ed) Start: 12-01-2024 Screening for malignant neoplasm of colon Colorectal Cancer Screening [facility] Comment on above: Postponed from 1958 (Patient Refus ed) Start: 06-06-2024 Influenza vaccination Influenza Vaccine (#1) [facility] Start: 08-22-2022 MR Prostate WO and W contrast IV [facility] Start: 08-22-2022 MR prostate wo/w con MR prostate wo/w con [facility] Start: 1960 Screening for malignant neoplasm of colon [facility] Dermatopathology exam Dermatopat hology exam Pathology and Cytology Timed Neoplasm of unspecified behavior of bone, soft tissue, and skin Release Upon Ordering for 1 Occurrences starting 08/03/2024 [facility] Work Phone: Comment on above: Release Upon Ordering for 1 Occurrences starting 08/03/2024 Immunizations Immunization Date Immunization Notes Care Provider Fa vicki NEGATED: Highlighted row has not occurred!08-28-2022 SARS-CoV-2 mRNA (tozinameran 5y-11y) vaccine Maty Olvin [facility] NEGATED: Highlighted row has not occurred!11-07-2020 influenza virus vaccine, unspecified formulation Maty Bah [facility] Payers Date Payer Category Payer [facility] BCBS [id number] 2024 Unknown [id number] 2023 Medicare [id number] 2022 Self-pay 1959 Unknown [id number] 1958 Unknown [id number] [id number]. 593 1958 Unknown [id number] 2.16.840.1.836836.3.579.2. 593 1958 Unknown [id number] 2.16840.1.108138.3.579.2. 593 1958 Unknown [id number] 2.16.840.1.367035.3.579.2. 593 1958 Unknown [id number] 2.16.840.1.982769.3.579.2. 593 1958 Unknown [id number] 2.16.840.1.131041.3.579.2. 727 1958 Unknown [id number] 2.16.840.1.336043.3.579.2. 727 1958 Unknown [id number] 2.16.840.1.573512.3.579.2. 1259 1958 Unknown [id number] 2.16.840.1.439023.3.579.2. 1259 1958 Unknown [id number] 2.16.840.1.347820.3.579.2. 1259 1958 Unknown [id number] 2.16.840.1.994378.3.579.2. 1259 1958 Unknown [id number] 2.16.840.1.211016.3.579.2. 1258 Unknown [id number] [id number]. 531 Social History Date Type Detail Facility Start: 05-21-2022 Tobacco smoking status Ex-smoker (fi nding) [facility] Start: 12-01-2023 Sex Assigned At Male [facility] Start: 1960 Sex Assigned At Male F [facility] Start: 07-31-2023 Tobacco smoking stat us NEIS Never smoked tobacco [facility] Start: 07-31-2023 Tobacco use and exposure Smokeless tobacco non-user [facility] Start: 08-03-2024 Alcoholic beverage intake Current drinker of alcohol (finding) [facility] Start: 12-01-2023 End: 08-03-2024 Alcoholic beverage intake [facility] Start: 1960 Sex assigned at Not on file [facility] Functional Status Date Assessment Result Facility 08-28-2022 Functional Status N/A [facility] 07-17-2022 Functional Status N/A [facility] Clinical Notes 10-29-2021 to 08-03-2024 Peace Gleason MD - 08/03/2024 11:15 AM EDT Note Date & Type Note Facility 08-03-2024 History of Present illness Narrative Skin Check Location: Patient requests a full body skin examination Dermatologic history: history of Actinic Keratosis, history of Basal Cell Carcinoma Last visit: 1 year ago Established patient All pertinent medical history, medications, and allergies were reviewed. General Exam: alert, oriented to person, place, and time, normal affect, well appearing Unaccompanied Scalp, Examined , exam limited by hair Right leg Examined Head, Face Examined , Exam limited by lee and mustache Left leg Examined Neck Examined Right foot Examined Chest Examined Left foot Examined Back Examined Buttocks Examined Abdomen Examined Digits,nails: Examined Right arm Examined Left arm Examined Lymphatics: Not examined Hands Examined 1. Melanocytic nevus of trunk Scattered benign appearing, regular brown to light brown melanocytic papules and macules with similar morphology Counseled regarding these benign growths. Rarely, a nevus can develop into malignant melanoma, so any changing nevi should be promptly re-evaluated. 2. Seborrheic keratosis Stuck on verrucous, nath-brown papules and plaques. Patient was counseled regarding these benign growths. Removal is normally not necessary, but they may be removed if they are symptomatic or for cosmetic reasons. 3. Actinic keratosis (2) Left Forearm - Posterior (2) Erythematous scaly papules Patient was counseled regarding these sun-induced growths that can develop into squamous cell carcinoma if left untreated. Discussed treatment with cryotherapy. It was emphasized that any treated lesions that fail to resolve should be re-evaluated. Cryotherapy performed today; see procedure note Diagnosis: Actinic keratosis Indication: Precancerous Location: see skin exam Consent: Verbal consent was obtained and risks were discussed, including, but not limited to risks of scarring, darker or independent living specialist pigmentary changes, recurrence, incomplete removal and infection. Method: Liquid nitrogen was used to treat the lesion(s) with two 5-10 second freeze-thaw cycles. Number of lesions treated: 2 Post-procedure instructions: Instructions were given orally and in writing. The office will be contacted if the lesion fails to resolve despite treatment, or if a side effect develops such as abnormal crusting, scabbing, redness or tenderness Cryotherapy, skin lesion - Left Forearm - Posterior (2) 4. History of basal cell carcinoma Mid Back No evidence of recurrence at BCC scar. The patient was counseled that scars from excisional sites of nonmelanoma skin cancers should be monitored closely for recurrence. The patient was instructed to contact the office for any new, changing, or symptomatic moles. The patient was also instructed to contact the office for any new lesions that develop within or around the previous surgery scar. 5. Lentigines Scattered nath macules in sun-exposed areas. The patient was informed that lentigines are benign pigmented lesions that occur on sun-exposed and sun-damaged skin. No treatment is necessary. Recommended regular use of broad spectrum sunscreen SPF 30 or higher 6. Neoplasm of unspecified behavior of bone, soft tissue, and skin Right Forearm - Posterior Hyperkeratotic papule Lesion biopsy Type of biopsy: tangential Informed consent: discussed and consent obtained Informed consent comment: The risks and benefits of the biopsy were discussed. Risks include but are not limited to bleeding, infection, scarring, pain, and nerve damage. An opportunity to ask questions prior to the procedure was permitted and all questions were answered. Patient was prepped and draped in usual sterile fashion: area cleansed with alcohol. Anesthesia: the lesion was anesthetized in a standard fashion Anesthetic: 1% lidocaine w/ epinephrine 1-100,000 buffered w/ 8.4% NaHCO3 Instrument used: DermaBlade Hemostasis achieved with: electrodesiccation Outcome: patient tolerated procedure well Outcome comment: The specimen was placed in a prelabeled formalin container to be sent for pathology Post-procedure details: sterile dressing applied and wound care instructions given Post-procedure details comment: Emphasized need to contact clinic for any signs of infection, uncontrollable bleeding, or complications. Dressing type: bandage Additional details: Photo taken Amount of lidocaine used: 0.4 cc Specimen A - Dermatopathology exam Differential Diagnosis: verruca vs SCC Check Margins: No Size of lesion: 0.5 x 0.5 cm Next Visit: 1 year, skin check documented in this encounter [facility] 08-28-2022 Hospital Discharge instructions Patient Education 08/28/2022 12:53:44 Benign Prostatic Hyperplasia Benign Prostatic Hyperplasia Benign prostatic hyperplasia (BPH) is an enlarged prostate gland that is caused by the normal aging process and not by cancer. The prostate is a walnut-sized gland that is involved in the production of semen. It is located in front of the rectum and below the bladder. The bladder stores urine and the urethra is the tube that carries the urine out of the body. The prostate may get bigger as a man gets older. An enlarged prostate can press on the urethra. This can make it harder to pass urine. The build-up of urine in the bladder can cause infection. Back pressure and infection may progress to bladder damage and kidney (renal) failure. What are the causes? This condition is part of a normal aging process. However, not all men develop problems from this condition. If the prostate enlarges away from the urethra, urine flow will not be blocked. If it enlarges toward the urethra and compresses it, there will be problems passing urine. What increases the risk? This condition is more likely to develop in men over the age of 50 years. What are the signs or symptoms? Symptoms of this condition include: Getting up often during the night to urinate. Needing to urinate frequently during the day. Difficulty starting urine flow. Decrease in size and strength of your urine stream. Leaking (dribbling) after urinating. Inability to pass urine. This needs immediate treatment. Inability to completely empty your bladder. Pain when you pass urine. This is more common if there is also an infection. Urinary tract infection (UTI). How is this diagnosed? This condition is diagnosed based on your medical history, a physical exam, and your symptoms. Tests will also be done, such as: A post-void bladder scan. This measures any amount of urine that may remain in your bladder after you finish urinating. A digital rectal exam. In a rectal exam, your health care provider checks your prostate by putting a lubricated, gloved finger into your rectum to feel the back of your prostate gland. This exam detects the size of your gland and any abnormal lumps or growths. An exam of your urine (urinalysis). A prostate specific antigen (PSA) screening. This is a blood test used to screen for prostate cancer. An ultrasound. This test uses sound waves to electronically produce a picture of your prostate gland. Your health care provider may refer you to a specialist in kidney and prostate diseases (urologist). How is this treated? Once symptoms begin, your health care provider will monitor your condition (active surveillance or watchful waiting). Treatment for this condition will depend on the severity of your condition. Treatment may include: Observation and yearly exams. This may be the only treatment needed if your condition and symptoms are mild. Medicines to relieve your symptoms, including: ?Medicines to shrink the prostate. ?Medicines to relax the muscle of the prostate. Surgery in severe cases. Surgery may include: ?Prostatectomy. In this procedure, the prostate tissue is removed completely through an open incision or with a laparoscope or robotics. ?Transurethral resection of the prostate (TURP). In this procedure, a tool is inserted through the opening at the tip of the penis (urethra). It is used to cut away tissue of the inner core of the prostate. The pieces are removed through the same opening of the penis. This removes the blockage. ?Transurethral incision (TUIP). In this procedure, small cuts are made in the prostate. This lessens the prostate's pressure on the urethra. ?Transurethral microwave thermotherapy (TUMT). This procedure uses microwaves to create heat. The heat destroys and removes a small amount of prostate tissue. ?Transurethral needle ablation (TUNA). This procedure uses radio frequencies to destroy and remove a small amount of prostate tissue. ?Interstitial laser coagulation (ILC). This procedure uses a laser to destroy and remove a small amount of prostate tissue. ?Transurethral electrovaporization (TUVP). This procedure uses electrodes to destroy and remove a small amount of prostate tissue. ?Prostatic urethral lift. This procedure inserts an implant to push the lobes of the prostate away from the urethra. Follow these instructions at home: Take puti-bcj-afjpvdl and prescription medicines only as told by your health care provider. Monitor your symptoms for any changes. Contact your health care provider with any changes. Avoid drinking large amounts of liquid before going to bed or out in public. Avoid or reduce how much caffeine or alcohol you drink. Give yourself time when you urinate. Keep all follow-up visits as told by your health care provider. This is important. Contact a health care provider if: You have unexplained back pain. Your symptoms do not get better with treatment. You develop side effects from the medicine you are taking. Your urine becomes very dark or has a bad smell. Your lower abdomen becomes distended and you have trouble passing your urine. Get help right away if: You have a fever or chills. You suddenly cannot urinate. You feel lightheaded, or very dizzy, or you faint. There are large amounts of blood or clots in the urine. Your urinary problems become hard to manage. You develop moderate to severe low back or flank pain. The flank is the side of your body between the ribs and the hip. These symptoms may represent a serious problem that is an emergency. Do not wait to see if the symptoms will go away. Get medical help right away. Call your local emergency services (911 in the [place] Do not drive yourself to the hospital. Summary Benign prostatic hyperplasia (BPH) is an enlarged prostate that is caused by the normal aging process and not by cancer. An enlarged prostate can press on the urethra. This can make it hard to pass urine. This condition is part of a normal aging process and is more likely to develop in men over the age of 50 years. Get help right away if you suddenly cannot urinate. This information is not intended to replace advice given to you by your health care provider. Make sure you discuss any questions you have with your health care provider. Document Released: 09/22/2006 Document Revised: 08/17/2019 Document Reviewed: 10/27/2017 [employer] Patient Education 2019 [place] Follow Up Care 07/17/2022 11:10:26 With:Olvin HARPER, MARIA ELENA Camacho, URO Address: When:1 year Comments:PSA F/T [facility] 07-17-2022 Hospital Discharge instructions Patient Education 07/17/2022 10:57:12 Benign Prostatic Hyperplasia Benign Prostatic Hyperplasia Benign prostatic hyperplasia (BPH) is an enlarged prostate gland that is caused by the normal aging process and not by cancer. The prostate is a walnut-sized gland that is involved in the production of semen. It is located in front of the rectum and below the bladder. The bladder stores urine and the urethra is the tube that carries the urine out of the body. The prostate may get bigger as a man gets older. An enlarged prostate can press on the urethra. This can make it harder to pass urine. The build-up of urine in the bladder can cause infection. Back pressure and infection may progress to bladder damage and kidney (renal) failure. What are the causes? This condition is part of a normal aging process. However, not all men develop problems from this condition. If the prostate enlarges away from the urethra, urine flow will not be blocked. If it enlarges toward the urethra and compresses it, there will be problems passing urine. What increases the risk? This condition is more likely to develop in men over the age of 50 years. What are the signs or symptoms? Symptoms of this condition include: Getting up often during the night to urinate. Needing to urinate frequently during the day. Difficulty starting urine flow. Decrease in size and strength of your urine stream. Leaking (dribbling) after urinating. Inability to pass urine. This needs immediate treatment. Inability to completely empty your bladder. Pain when you pass urine. This is more common if there is also an infection. Urinary tract infection (UTI). How is this diagnosed? This condition is diagnosed based on your medical history, a physical exam, and your symptoms. Tests will also be done, such as: A post-void bladder scan. This measures any amount of urine that may remain in your bladder after you finish urinating. A digital rectal exam. In a rectal exam, your health care provider checks your prostate by putting a lubricated, gloved finger into your rectum to feel the back of your prostate gland. This exam detects the size of your gland and any abnormal lumps or growths. An exam of your urine (urinalysis). A prostate specific antigen (PSA) screening. This is a blood test used to screen for prostate cancer. An ultrasound. This test uses sound waves to electronically produce a picture of your prostate gland. Your health care provider may refer you to a specialist in kidney and prostate diseases (urologist). How is this treated? Once symptoms begin, your health care provider will monitor your condition (active surveillance or watchful waiting). Treatment for this condition will depend on the severity of your condition. Treatment may include: Observation and yearly exams. This may be the only treatment needed if your condition and symptoms are mild. Medicines to relieve your symptoms, including: ?Medicines to shrink the prostate. ?Medicines to relax the muscle of the prostate. Surgery in severe cases. Surgery may include: ?Prostatectomy. In this procedure, the prostate tissue is removed completely through an open incision or with a laparoscope or robotics. ?Transurethral resection of the prostate (TURP). In this procedure, a tool is inserted through the opening at the tip of the penis (urethra). It is used to cut away tissue of the inner core of the prostate. The pieces are removed through the same opening of the penis. This removes the blockage. ?Transurethral incision (TUIP). In this procedure, small cuts are made in the prostate. This lessens the prostate's pressure on the urethra. ?Transurethral microwave thermotherapy (TUMT). This procedure uses microwaves to create heat. The heat destroys and removes a small amount of prostate tissue. ?Transurethral needle ablation (TUNA). This procedure uses radio frequencies to destroy and remove a small amount of prostate tissue. ?Interstitial laser coagulation (ILC). This procedure uses a laser to destroy and remove a small amount of prostate tissue. ?Transurethral electrovaporization (TUVP). This procedure uses electrodes to destroy and remove a small amount of prostate tissue. ?Prostatic urethral lift. This procedure inserts an implant to push the lobes of the prostate away from the urethra. Follow these instructions at home: Take svqt-ebs-jhzyunh and prescription medicines only as told by your health care provider. Monitor your symptoms for any changes. Contact your health care provider with any changes. Avoid drinking large amounts of liquid before going to bed or out in public. Avoid or reduce how much caffeine or alcohol you drink. Give yourself time when you urinate. Keep all follow-up visits as told by your health care provider. This is important. Contact a health care provider if: You have unexplained back pain. Your symptoms do not get better with treatment. You develop side effects from the medicine you are taking. Your urine becomes very dark or has a bad smell. Your lower abdomen becomes distended and you have trouble passing your urine. Get help right away if: You have a fever or chills. You suddenly cannot urinate. You feel lightheaded, or very dizzy, or you faint. There are large amounts of blood or clots in the urine. Your urinary problems become hard to manage. You develop moderate to severe low back or flank pain. The flank is the side of your body between the ribs and the hip. These symptoms may represent a serious problem that is an emergency. Do not wait to see if the symptoms will go away. Get medical help right away. Call your local emergency services (911 in the [place] Do not drive yourself to the hospital. Summary Benign prostatic hyperplasia (BPH) is an enlarged prostate that is caused by the normal aging process and not by cancer. An enlarged prostate can press on the urethra. This can make it hard to pass urine. This condition is part of a normal aging process and is more likely to develop in men over the age of 50 years. Get help right away if you suddenly cannot urinate. This information is not intended to replace advice given to you by your health care provider. Make sure you discuss any questions you have with your health care provider. Document Released: 09/22/2006 Document Revised: 08/17/2019 Document Reviewed: 10/27/2017 [employer] Patient Education 2020 [place]. Follow Up Care 05/21/2022 11:55:31 With:lOvin HARPER, Maty Can, URL, URO Address[address] [place] [place] [phone] When: Unknown [facility] 10-29-2021 Note EXAM: CHEST 2 VIEWS HISTORY: Pre-surgery evaluation TECHNIQUE: PA and lateral views chest. COMPARISON: 10/11/2020. FINDINGS: There is mild bibasilar atelectasis. There is no focal lung consolidation, pleural effusion or pneumothorax. Pulmonary vasculature is within normal limits. There is atherosclerosis and tortuous thoracic aorta with upper limits of normal heart size. A small hiatal hernia suggested. IMPRESSION: 1. Mild bibasilar atelectasis without acute cardiopulmonary disease. 2. Atherosclerosis and upper limits of normal heart size. 3. Possible small hiatal hernia. Electronically authenticated by: LIONEL HENRY Date: 2021-10-29 14:38 [facility] Evaluation + Plan note Future Appointments Appointment Date:08/21/2022 10:00:00 AM Scheduled Provider:Maty Bah MD Location:[facility] Appointment Type:URO Office Visit [facility] Evaluation + Plan note Future Appointments Appointment Date:08/27/2023 10:15:00 AM Scheduled Provider:Maty Bah MD Location:[facility] Appointment Type:URO Office Visit Diagnostic Tests PendingPSA Free & Total 08/28/22 [facility] Evaluation note No assessment inform ation available [facility] Work Phone: Evaluation note Diagnosis Melanocytic nevus of trunk- Primary Benign neoplasm of skin of trunk, except scrotum Seborrheic keratosis Actinic keratosis History of basal cell carcinoma Personal history of other malignant neoplasm of skin Lentigines Neoplasm of unspecified behavior of bone, soft tissue, and skin [facility] Narr[facility] No data available for this section [facility] Hospital Discharge instructions No data available for this section [facility] No data available for this section [facility] Summary Purpose Family History No Family History Records FoundNo Family History Records FoundNo Family History Records FoundNo Family History Records FoundNo Family History Records Found Advance Directives No Advanced Directives Records Found Advance Directive Response Recorded Date/ Time Advance Directives No August 13, 2022 4:05pm Chief Complaint and Reason for Visit Chief Complaint R97.20 N40.1 Additional Source Comments (unrecognized sect ion and content) No Status Records FoundNo Status Records FoundNo Status Records FoundNo Status Records FoundNo Status Records Found INFORMATION SOURCE (unrecogn ized section and content) DATE CREATED AUTHOR 10/26/2020 [facility] DATE CREATED AUTHOR AUTHOR'S ORGANIZ ATION 05/15/2022 [facility] DATE CREATED AUTHOR AUTHOR'S ORGANIZ ATION 08/27/2022 [facility] DATE CREATED AUTHOR AUTHOR'S ORGANIZ ATION 07/24/2024 [facility] DATE CREATED AUTHOR AUTHOR'S ORGANIZ ATION 08/04/2024 [facility] EPIC Patient Care team informatio n (unrecognized section and content) Team Status: Inactive Member Role Status Dates Maty Bah MD Attending Provider Active Tammy Marcano MD Primary Care Provider Active Team Status: Active Member Role Status Dates Tammy Marcano MD Primary Care Provider Active [place] Worker Relationship Specialty Start Date End Date Tammy Marcano DO PCP - General Family Medicine 02/13/23 Tammy Marcano DO PCP - Medical [place] [employer] 12/04/14 10/05/99 Goals (unrecognized section and content) Goals may be documented in a n alternate section Reason for Visit (unrecogniz ed section and content) Reason Comments Skin Check FOR RECORDS PERTAINING TO PATIENTS WHO ARE OR HAVE BEEN ENROLLED IN A CHEMICAL DEPENDENCY/SUBSTANCEABUSE PROGRAM, SOME INFORMATION MAY BE OMITTED. This clinical summary was aggregated from multiple sources. Caution should be exercised in using it in the provision of clinical care. This summary normalizes information from multiple sources, and as a consequence, information in this document may materially change the coding, format and clinical context of patient data. In addition, data may be omitted in some cases. CLINICAL DECISIONS SHOULD BE BASED ON THE PRIMARY CLINICAL RECORDS. [email or web address] provides no warranty or guarantee of the accuracy or completeness of information in this document.
[2024-08-19 04:08] LABS: PSA, Free 1.87 ng/mL; Prostate Specific Ag 6.2 ng/mL (0.0-4.0)
== END 2024-08-18 08:59 | disposition home or self-care (01) ==
LOC: LAB 09:00
PROVIDERS: Visit Provider Urology
DX: R97.20 Elevated prostate specific antigen [PSA] (principal)
CPT/HCPCS: 36415; 84153; 84154